=== PATIENT | male | born 1950 | race Two or more races ===

== ENCOUNTER → 2024-03-03 | Outpatient (CLI) | payer MEDICARE, OTHER, SELFPAY ==
--- NOTE | 2024-03-03 14:42 | RAD_ITS ---
STUDY: X-RAY - RIGHT WRIST REASON FOR EXAM: Male, 73 years old. PAIN TECHNIQUE: 3 views of the right wrist were obtained. COMPARISON: None. FINDINGS: There is degenerative arthrosis of the radioulnar joint. There is ulnar positive variance with cystic changes in the distal ulna and proximal triquetrum. Intact carpal bones. Normal carpal articulations. There is mild degenerative arthrosis of the first MCP joint and first MCP joint. Normal second through fifth carpometacarpal articulations. Normal visualized metacarpal bones. The soft tissue structures are unremarkable. 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 Ulnar positive variance with cystic changes in the distal ulna and proximal triquetrum. Mild degenerative arthrosis of the first MCP joint and first MCP joint. Electronically Signed: Indio Gale MD at 15:21 EST ,
--- NOTE | 2024-03-03 14:42 | RAD_ITS ---
STUDY: X-RAY - RIGHT HAND REASON FOR EXAM: Male, 73 years old. PAIN TECHNIQUE: 3 views of the right hand. COMPARISON: None. FINDINGS: There is degenerative arthrosis of the distal radioulnar joint. There is ulnar positive variance with cystic changes in the distal ulna and proximal triquetrum. Normal visualized carpal bones. Normal carpal articulations. There is mild degenerative arthrosis at the first CMC joint. Normal second through fifth carpometacarpal joints. Normal metacarpi. There is moderate to severe degenerative arthrosis of the first through third MCP joints. Normal interphalangeal joint of the thumb. Normal proximal and distal phalanges of the thumb. Normal metacarpophalangeal joints of the second through fifth fingers. Normal proximal and distal interphalangeal joints of the second through fifth fingers. Normal phalanges of the second through fifth fingers. The soft tissue structures are unremarkable. RAD/Hand Min 3 Views IMPRESSION: Degenerative arthrosis of the distal radioulnar joint. Ulnar positive variance with cystic changes in the distal ulna and proximal triquetrum. Mild degenerative arthrosis at the first CMC joint. 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 Electronically Signed: Indio Gale MD at 15:27 EST ,
--- NOTE | 2024-03-03 14:42 | RAD_ITS ---
STUDY: X-RAY - LEFT WRIST REASON FOR EXAM: Male, 73 years old. PAIN TECHNIQUE: 3 views of the left wrist were obtained. COMPARISON: None. FINDINGS: Normal visualized distal radius and ulna. Normal radiocarpal articulation. Normal distal radioulnar articulation. Normal carpal bones. Normal carpal articulations. Normal carpometacarpal articulation of the thumb. Normal second through fifth carpometacarpal articulations. Normal visualized metacarpal bones. The soft tissue structures are unremarkable. There is no demonstrated acute fracture. RAD/Wrist min 3 Views IMPRESSION: Unremarkable x-ray examination of the left wrist. Electronically Signed: Indio Gale MD at 15:17 EST ,
--- NOTE | 2024-03-03 14:45 | RAD_ITS ---
STUDY: X-RAY - LEFT HAND REASON FOR EXAM: Male, 73 years old. PAIN TECHNIQUE: 3 views of the left hand. COMPARISON: None. FINDINGS: Normal radiocarpal articulation. Normal distal radioulnar joint. Normal visualized carpal bones. Normal carpal articulations. Normal carpometacarpal articulation of the thumb. Normal second through fifth carpometacarpal joints. Normal metacarpi. There is moderate to severe degenerative arthrosis of the first through third MCP joints. Normal interphalangeal joint of the thumb. Normal proximal and distal phalanges of the thumb. Normal proximal and distal interphalangeal joints of the second through fifth fingers. Normal phalanges of the second through fifth fingers. The soft tissue structures are unremarkable. 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 Electronically Signed: Indio Gale MD at 15:30 EST ,
[2024-03-03 17:27] LABS: Absolute Lymphocyte Count 3.47 X10^3/uL (0.83-4.51); Absolute Neutrophil Count 4.9 X10^3/uL (2.0-7.7); Basophil# 0.05 X10^3/uL; Basophil% 0.5 % (0-1); Eosinophils% 4.2 % (0-5); Hematocrit 37.3 % (40-54); Hemoglobin 11.8 g/dL (13.0-16.5); Lymphocyte # 3.47 X10^3/ul (0.83-4.51); Lymphocyte % 36.2 % (19-41); Mean Corp Hgb Conc 31.6 g/dL (32-36); Mean Corpuscular Hgb 26.9 pg (27.0-32.0); Mean Platelet Vol. 9.5 fl (6.2-12.0); Monocyte# 0.68 X10^3/uL; Monocyte% 7.1 % (0-10); NRBC Flagged by Analyzer 0 % (0-5); Neutrophil # 4.92 X10^3/uL (2.7-7.7); Neutrophil % 51.4 % (47-70); Platelet Count 384 K/mm3 (150-450); RBC Distribution Width CV 14.8 % (11.6-14.6); RBC Distribution Width SD 45.2 fl (35.1-43.9); Red Blood Count 4.39 M/mm3 (4.6-6.2); White Blood Count 9.6 K/mm3 (4.4-11.0)
[2024-03-03 17:39] LABS: Erythrocyte Sedimentation Rate 36 mm/hr (0-20)
[2024-03-03 17:50] LABS: ALB/GLOB Ratio 0.8 RATIO (0.9-2.4); AST(SGOT) 11 U/L (15-37); Alanine Aminotransfer ALT/SGPT 18 U/L (16-61); Albumin, Serum 3.5 g/dL (3.2-5.0); Alkaline Phosphatase 69 U/L (45-117); Anion Gap 5 (5-15); BUN 18 mg/dL (7-18); BUN/Creat Ratio 16.5 RATIO (10-20); Calcium,Total 9.3 mg/dL (8.5-10.1); Chloride 105 mmol/L (98-107); Creatinine, Serum 1.09 mg/dL (0.70-1.30); EST Glomerular Filtration Rate 71 mL/min (>60); Est Glom Filt Rate - Afr Amer 85 mL/min (>60); Globulin 4.5 g/dL (2.2-4.2); Glucose 84 mg/dL (74-106); Rheumatoid Factor < 10.0 IU/mL (<15); Sodium Level 137 mmol/L (136-145)
[2024-03-03 18:37] LABS: Hepatitis B Surface Antibody Reactive; Hepatitis B Surface Antigen Non-Reactive (Nonreactive); Hepatitis C Antibody Non-Reactive (Nonreactive)
[2024-03-06 13:06] LABS: CCP IgG Antibodies 7 units (0-19)
[2024-03-06 14:07] LABS: ANTINUCLEAR ANTIBODIES DIRECT Negative (Negative)
[2024-03-08 11:07] LABS: QNTFERON TB Mitogen Value > 10.00 IU/mL (.); QNTFERON TB Nil Value 0.04 IU/mL (.); QNTFERON TB1+ Ag Value 0.13 IU/mL (.); QNTFERON TB2+ Ag Value 0.12 IU/mL (.); QNTIFERON TB Positive Criteria Negative (Negative)
== END | disposition home or self-care (01) ==
PROVIDERS: Referring Provider Internal Medicine Rheumatology; Visit Provider Internal Medicine Rheumatology
DX: M06.4 Inflammatory polyarthropathy (principal); M18.0 Bilateral primary osteoarthritis of first carpometacarpal joints
CPT/HCPCS: 36415; 73110; 73130; 80053; 82306; 85025; 85652; 86038; 86140; 86200; 86431; 86480; 86706; 86803; 87340